=== PATIENT | female | born 1950 | race Caucasian/White ===

== ENCOUNTER → 2017-07-28 | Outpatient (CLI) | payer BC ==
[2005-10-09 07:55] VITALS: TEMP 97.4
[~2017-07-28] MED LIST: ALLEGRA 60MG TA60 MG PO; GINKO BILOBA60 MG PO; IMITREX100 MG PO; MAREPA1200 MG PO; MELATONIN2 M1 PO; NIACIN500 M3 PO; NORCO 325 MG-51 TAB PO; PROAIR HFA0.09 MG/AC IH; SYNTHROID0.112 MG/T PO; VESICARE10 MG PO; VITAMIN D1000 IU PO; ZANTAC 150 EFF150 M1 PO; ZOLOFT 50MG50 MG PO; [UNRECOGNIZED DRUG - OTHER] PO
== END ==
LOC: MC.RAD 10:40
DX: Z12.31 Encounter for screening mammogram for malignant neoplasm of breast (principal)

== ENCOUNTER → 2018-02-03 | Outpatient (CLI) | payer BC ==
[2005-10-09 07:55] VITALS: TEMP 97.4
== END ==
LOC: COL.RAD 13:07
DX: N20.0 Calculus of kidney (principal)

== ENCOUNTER → 2019-07-20 | Outpatient (CLI) | payer BC | LOC: MC.RAD 07:51 | DX: Z12.31 Encounter for screening mammogram for malignant neoplasm of breast (principal); N64.89 Other specified disorders of breast ==

== ENCOUNTER → 2019-07-27 | Outpatient (CLI) | payer BC | LOC: MC.RAD 12:57 | DX: N64.89 Other specified disorders of breast (principal) | CPT/HCPCS: G0279 ==

== ENCOUNTER 2021-11-23 10:30 | Outpatient (RCR) | payer BC | END 2021-11-26 | disposition home or self-care (01) | LOC: WSPT | DX: M54.16 Radiculopathy, lumbar region (principal); M54.12 Radiculopathy, cervical region ==

== ENCOUNTER 2021-12-21 09:45 | Outpatient (RCR) | payer BC | END 2021-12-27 | disposition home or self-care (01) | LOC: WSPT | DX: M54.16 Radiculopathy, lumbar region (principal); M54.12 Radiculopathy, cervical region ==

== ENCOUNTER 2022-02-03 16:50 | Emergency (ER) | payer BC ==
[~2022-02-03] VITALS: Ht 152.4 cm; Wt 81.8 kg
[2022-02-03 17:15] VITALS: TEMP 98
[2022-02-03 18:06] LABS: COLLECTION METHOD CLEAN CATCH
[2022-02-03 18:14] LABS: PH 7 (5-8); SQUAMOUS EPITHELIAL 0-2 /hpf (0-10); URINE APPEARANCE Hazy (CLEAR/HAZY); URINE BACTERIA None Seen /hpf (NONE SEEN); URINE BILIRUBIN Negative (NEGATIVE); URINE BLOOD Negative (NEGATIVE); URINE COLOR Yellow (YELLOW); URINE GLUCOSE Negative (NEGATIVE); URINE KETONE Trace (NEGATIVE); URINE LEUKOCYTE ESTERASE Negative (NEGATIVE); URINE NITRATE Negative (NEGATIVE); URINE PROTEIN(semi-quant) Negative (NEGATIVE); URINE UROBILINOGEN Negative (NEGATIVE)
[2022-02-03 18:35] LABS: BASO # 0.1 K/mm3 (0.0-0.2); BASO % 0.8 % (0.0-2.0); EOS # 0.2 K/mm3 (0.0-0.7); EOS % 2.3 % (0.0-4.0); GRAN # 5.4 K/mm3 (1.4-6.5); GRAN % 62.8 % (42.2-75.2); HEMATOCRIT 44.2 % (37.0-47.0); HEMOGLOBIN 15.1 g/dl (12.5-16.0); LYMPH # 2.2 K/mm3 (1.2-3.4); LYMPH % 25.6 % (20.0-51.0); MEAN CELL VOLUME 86 fl (80.0-100.0); MEAN CORPUSCULAR HEMOGLOBIN 29 pg (27-31); MEAN CORPUSCULAR HGB CONC 34 g/dl (33.0-37.0); MEAN PLATELET VOLUME 9.9 fl (7.4-10.4); MONO # 0.7 K/mm3 (0.1-0.6); MONO % 8.2 % (1.7-9.3); PLATELET COUNT 318 K/mm3 (130-400); RED BLOOD COUNT 5.13 M/mm3 (4.10-5.30); REDCELL DISTRIBUTION WIDTH-CV 12.9 % (11.5-14.5)
[2022-02-03 18:54] LABS: ALBUMIN 4.4 gm/dL (3.4-4.8); BILIRUBIN,TOTAL 0.5 mg/dL (0.2-1.2); CALCIUM 10.9 mg/dL (8.4-10.2); CREATININE, serum 0.88 mg/dL (0.57-1.11); POTASSIUM 3.5 mmol/L (3.5-4.5); TOTAL PROTEIN 7.1 gm/dL (6.2-8.1)
[2022-02-03] MEDS ORDERED: ZOFRAN ODT4 MG PO (20:33)
[2022-02-03] MEDS ORDERED: NORCO 325 MG-51 TAB PO (20:33)
[2022-02-03] MEDS ORDERED: FLOMAX 0.40.4 MG/CAP PO (20:33)
[2022-02-03 21:00] VITALS: BP 162/93; PULSE 67
== END 2022-02-03 21:00 | disposition home or self-care (01) ==
LOC: COL.ER 16:50
PROVIDERS: Emergency Medicine
DX: N13.2 Hydronephrosis with renal and ureteral calculous obstruction (principal); Z90.49 Acquired absence of other specified parts of digestive tract; Z20.822 Contact with and (suspected) exposure to COVID-19
CPT/HCPCS: J1885; J2405; J3010; J7120; Q9967

== ENCOUNTER → 2024-07-15 | Outpatient (CLI) | payer MEDICARE, OTHER ==
[2005-10-09 07:55] VITALS: TEMP 97.4
[~2024-07-15] MED LIST changes: +FLOMAX 0.40.4 MG/CAP PO; +ZOFRAN ODT4 MG PO
== END ==
LOC: COL.RAD 11:52
DX: M47.26 Other spondylosis with radiculopathy, lumbar region (principal); M51.16 Intervertebral disc disorders with radiculopathy, lumbar region; M43.16 Spondylolisthesis, lumbar region; M48.061 Spinal stenosis, lumbar region without neurogenic claudication